=== PATIENT | male | born 1980 | race Caucasian/White ===

== ENCOUNTER 2016-06-22 08:06 | Emergency (ER) | payer OTHER ==
[2016-06-22 08:34] VITALS: TEMP 98.1
[2016-06-22] MEDS ORDERED: NS 1,000 ML IV ONE (08:35)
--- NOTE | 2016-06-22 08:50 | UCPHY ---
H & P Patient Type: Established Chief Complaint Nursing Narrative: abd cramping since wednesday with blood in toilet bright red bleedng/. Time Seen by Provider: 06/22/16 08:15 HPI/ROS: This patient complains of bloody loose stool. Explains that on Wednesday of this past week, 5 days prior to arrival he developed some lower abdominal cramping. This was mild in intensity and intermittent. On Wednesday he developed bloody stool describes some bright blood in loose stool and he has had 1-5 episodes of loose stool a day since then with varying amounts of blood. He continues to have mild lower belly cramping associated with the symptoms. He explains that early this morning he had green looking stool with no significant blood. He reports frequently having some loose stools but this is the 1st time he has ever had bloody stools. ROS: No fevers or chills. No other constitutional symptoms. HEENT: No URI symptoms. Pulmonary: No complaints cardiovascular: No lightheadedness GI: No upper belly pain. No nausea or vomiting. He still tolerating good p.o. intake. : No complaints 10 point ROS is otherwise negative. Source: Patient Exam Limitations: No limitations - Medical/Surgical History PMH: Prior history of loose stools Patient has sinusitis March 20, 2016 was treated with Augmentin for that. No other antibiotics since that time. Family history is negative for Crohn's disease or other inflammatory bowel disease. Hx Asthma: No Hx Chronic Respiratory Disease: No Hx Diabetes: No Hx Cardiac Disease: No Hx Renal Disease: No Hx Cirrhosis: No Hx Alcoholism: No Hx HIV/AIDS: No Hx Splenectomy or Spleen Trauma: No Other PMH: PCP NONE. Denies med / surg. Flu NONE. tetanus none - Family History Significant Family History: No pertinent family hx - Social History Smoking Status: Never smoked Alcohol Use: Other (Patient reports going through about a 12 pack of beer a week.) Drug Use: None Additional Social History: No recent foreign travel - Physical Exam Exam: General Appearance: Alert, no distress. Eyes: Pupils equal and round no pallor or injection. ENT, Mouth: Mucous membranes moist. Respiratory: There are no retractions, lungs are clear to auscultation. Cardiovascular: Regular rate and rhythm. Gastrointestinal: Abdomen is soft with minimal diffuse lower belly tenderness no guarding or rebound., no masses, bowel sounds normal. Rectal exam: No external hemorrhoids. No significant tenderness on rectal exam. Prostate is normal in size. He has greenish appearing loose stool that is Hemoccult positive Neurological: Alert with no focal deficits Back: No CVA tenderness Skin: Warm and dry, no rashes. Extremities are symmetrical, full range of motion. Psychiatric: Patient is anxious but otherwise mood and affect normal DIFFERENTIAL DIAGNOSIS: After history and physical exam differential diagnosis was considered for C diff, other colitis, doubt internal hemorrhoid, inflammatory bowel disease, Meckel's diverticulum Constitutional: Initial Vital Signs Temperature (C) 36.7 C 06/22/16 08:22 Heart Rate 100 06/22/16 08:22 Respiratory Rate 20 06/22/16 08:22 Blood Pressure 150/92 H 06/22/16 08:22 O2 Sat (%) 98 06/22/16 08:22 O2 Delivery Mode Room Air Allergies/Adverse Reactions: No Known Allergies Allergy (Verified 06/22/16 08:35) Home Medications: Medication Instructions Recorded NK [No Known Home Meds] 06/22/16 Medical Decision Making ED Course/Re-evaluation: His stool sample is negative for GI pathogens. - Data Points Laboratory Results: Laboratory Results 06/22/16 08:50 06/22/16 08:50 Medications Given: Discontinued Medications Sodium Chloride (Ns) 1,000 mls @ 0 mls/hr IV ONCE ONE PRN Reason: Wide Open Stop: 06/22/16 08:36 Last Admin: 06/22/16 08:45 Dose: 1,000 mls Departure - Departure Disposition: Home, Routine, Self-Care Clinical Impression: Bloody diarrhea Condition: Good Instructions: Acute Diarrhea (ED) Additional Instructions: Diagnosis: Bloody diarrhea Plan: Yogurt or probiotic Your stool study should be back before the end of the day and will call you with this resolved and the treatment plan. Follow up with Dr. Chowdhury-gastroenterology specialist for further evaluation for any ongoing symptoms. Go the emergency department for any significant worsening despite the treatment plan Referrals: NONE *PRIMARY CARE P,. [Primary Care Provider] - As per Instructions Blake Chowdhury MD [Medical Doctor] - As per Instructions - PQRS PQRS Measurement: NA
[2016-06-22 08:53] LABS: % IMMATURE GRANULYOCYTES 0.3 % (0.0-1.1); ABSOLUTE IMMATURE GRANULOCYTES 0.02 10^3/uL (0.00-0.10); ADD DIFF? NO; ADD MORPH? NO; ADD SCAN? NO; ATYPICAL LYMPHOCYTE FLAG 0 (0-99); FRAGMENT RBC FLAG 0 (0-99); HEMOGLOBIN 18.3 g/dL (13.7-17.5); LEFT SHIFT FLG 0 (0-99); LIPEMIA HEMOLYSIS FLAG 90 (0-99); MEAN CELL HEMOGLOBIN 31.2 pg (27.9-34.1); MEAN CELL HEMOGLOBIN CONCENTR. 36.6 g/dL (32.4-36.7); MEAN CELL VOLUME 85.3 fL (81.5-99.8); MEAN PLATELET VOLUME 9.9 fL (8.7-11.7); PLATELET CLUMPS FLAG 20 (0-99); PLATELET COUNT 244 10^3/uL (150-400); RED BLOOD CELL COUNT 5.86 10^6/uL (4.40-6.38); RED CELL DISTRIBUTION WIDTH 12.1 % (11.5-15.2)
[2016-06-22 09:06] LABS: ANION GAP 18 mEq/L (8-16); CARBON DIOXIDE 23 mEq/l (22-31); CHLORIDE 104 mEq/L (97-110); CREATININE 1.1 mg/dL (0.7-1.3); GLOMERULAR FILTRATION RATE > 60; GLUCOSE 98 mg/dL (70-100); SODIUM 145 mEq/L (134-144)
[2016-06-22 10:18] VITALS: BP 136/97; PULSE 75; RESP 16; O2SAT 96
== END 2016-06-22 10:16 | disposition home or self-care (01) ==
LOC: CED 08:06
DX: K92.1 Melena (principal); R19.7 Diarrhea, unspecified
CPT/HCPCS: 80048-PO; 82270-PO; 85025-PO; G0463-PO

== ENCOUNTER 2017-10-20 19:15 | Emergency (ER) | payer OTHER ==
--- NOTE | 2017-10-20 19:22 | EDPHY ---
H & P Time Seen by Provider: 10/20/17 19:21 HPI/ROS: 37 yo M presents c/o tick bite to right posterior lower leg. States he was hiking in [place] and removed a tick about two weeks ago, now has noticed over the last 2 days swelling, redness and a rash to the area of his lower leg. No fever or chills, no joint pain. Review of systems As per HPI General no fever no chills no weakness HEENT no eye pain no eye discharge. No eye redness, no sore throat Respiratory no cough, no shortness of breath Cardiac no chest pain, no peripheral edema GI no abdominal pain, no diarrhea, no constipation, no nausea, no vomiting no flank pain, no hematuria, no dysuria Musculoskeletal no myalgias, no joint pain Heme no easy bruising, no easy bleeding Endo no polyuria, no polydipsia Skin positive rashes, no pruritus Neuro no syncope, no dizziness, no headaches Psych is no suicidal ideation, no homicidal ideation Past Medical/Surgical History: Non contributory Social History: Alcohol socially, denies drug use Smoking Status: Never smoked Physical Exam: 37-year-old male alert and oriented no acute distress nontoxic appearance afebrile at, nc neck supple lungs cta bilat heart rrr abd nabs soft ext right lower ext posterior distal lower leg with one cm round erythematous macule, 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 Imp tick bite with target lesion appearance plan doxycycline bid x 10 days f/u pcp Differential Diagnosis: Differential diagnosis considered but not limited to: Insect bite, tick bite, erythema migrans, undifferentiated dermatitis - Data Points Medications Given: Discontinued Medications Doxycycline Hyclate (Vibramycin 100 Mg Prepack#2) 1 btl TAKELATHAE EDNOW ONE Stop: 10/20/17 19:34 Last Admin: 10/20/17 19:47 Dose: 1 btl Departure - Departure Disposition: Home, Routine, Self-Care Clinical Impression: Tick bite Condition: Good Instructions: Doxycycline (By mouth), Lyme Disease (ED), Tick Bite (ED) Referrals: NONE *PRIMARY CARE P,. [Primary Care Provider] - As per Instructions Prescriptions: Doxycycline Hyclate 100 mg PO BID 10 Days #20 tab
[2017-10-20 19:27] VITALS: BP 155/98
[2017-10-20] MEDS ORDERED: DOXYCYCLINE 100 MG PREPACK#2 BTL TAKEHOME ONE (19:33)
== END 2017-10-20 19:53 | disposition home or self-care (01) ==
LOC: CED 19:15
DX: S80.861A Insect bite (nonvenomous), right lower leg, initial encounter (principal); W57.XXXA Bitten or stung by nonvenomous insect and other nonvenomous arthropods, initial encounter